=== PATIENT | female | born 1950 | race Caucasian/White ===

== ENCOUNTER → 2018-02-12 | Outpatient (CLI) | payer OTHER | END | disposition home or self-care (01) | LOC: KCIC MAMMO 11:10 | DX: Z12.31 Encounter for screening mammogram for malignant neoplasm of breast (principal) | CPT/HCPCS: 77063; 77067 ==

== ENCOUNTER → 2018-04-22 | Outpatient (CLI) | payer OTHER ==
--- NOTE | 2018-04-23 10:26 | SLEEP ---
DATE OF STUDY: 04/22/2018 ATTENDING PHYSICIAN: Dr. Everardo Beverly. The patient is 67-year-old who weighs 220 pounds with a BMI of 33.4. The patient's [place] score was 10. Home sleep study was performed at [facility]. Total recording time was 568 minutes. During the night study, the patient had 56 obstructive apneas, no central or mixed apneas and 5 hypopneas. The patient's apnea hypopnea index was 6.4 per hour with a supine index of 9.6 per hour. Nocturnal oximetry study revealed an average oxygen saturation 92% with the lowest of 87%. Four minutes were spent in oxygen saturation less than 90%. Mean heart rate was 63 beats per minute. IMPRESSION: 1. Mild sleep apnea-hypopnea syndrome at an AHI of 6.4 per hour. 2. Mild nocturnal hypoxia. RECOMMENDATIONS: 1. The patient has mild sleep apnea. I would recommend weight loss as the initial form of treatment. 2. If patient remains clinically symptomatic despite weight loss, then consider other treatment options such as oral appliance as recommended by the dentist versus a trial of CPAP titration. 3. Avoid [employer] depressants. 4. Cautioned regarding driving until symptoms of sleep apnea resolve with the above recommendations. MILEY VELEZ MD DR: NGUYEN/nts JOB#: [id number] / [id number] Everardo Pro
== END | disposition home or self-care (01) ==
LOC: RT 10:22
PROVIDERS: ATTEND Family Medicine
DX: G47.33 Obstructive sleep apnea (adult) (pediatric) (principal); G47.34 Idiopathic sleep related nonobstructive alveolar hypoventilation
CPT/HCPCS: 95816

== ENCOUNTER → 2019-05-28 | Outpatient (CLI) | payer OTHER ==
--- NOTE | 2019-05-28 14:48 | KCIC ---
EXAM: Left wrist, 3 views; left hand, 3 views. HISTORY: Pain. COMPARISON: None. FINDINGS: 3 views of the left wrist and hand are obtained. There is no acute fracture, dislocation or subluxation. There is mild triscaphe and first carpometacarpal joint space narrowing. There is first carpometacarpal subchondral sclerosis and marginal osteophytosis. There are few chronic fragmented osteophytes in this location. IMPRESSION: 1. Mild triscaphe and moderate first carpometacarpal joint osteoarthritis. 2. No acute osseous finding. Electronically signed by: Faye Bustamante MD (05/28/2019 2:45 PM) [place] [id number]
== END | disposition home or self-care (01) ==
LOC: KCIC 10:44
PROVIDERS: ATTEND Family Medicine
DX: M79.642 Pain in left hand (principal); M25.532 Pain in left wrist; M25.742 Osteophyte, left hand; M18.9 Osteoarthritis of first carpometacarpal joint, unspecified
CPT/HCPCS: 73110; 73130

== ENCOUNTER → 2019-10-07 | Outpatient (CLI) | payer MEDICARE ==
--- NOTE | 2019-10-08 08:52 | KCIC ---
BRAIN W/O CONTRAST History: History of stroke. Headache. Vision disturbance. Technique: Multiplanar, multi sequential MR imaging was performed of the brain without contrast. Comparison: None Findings: No acute infarct. No intracranial hemorrhage. No mass effect. No hydrocephalus. Mild foci of T2/FLAIR hyperintensity within the hemispheric white matter, most often due to chronic microvascular ischemia. Tortuous vertebral basilar artery with indention on the brainstem. Imaged orbits are unremarkable. Mild maxillary sinus mucosal thickening. Mastoid air cells are clear. Impression: 1. No acute intracranial abnormality. Electronically signed by: Jorge Kelly DO (10/08/2019 8:49 AM) [id number]
== END | disposition home or self-care (01) ==
LOC: KCIC MRI 15:38
PROVIDERS: ATTEND Family Medicine
DX: J34.89 Other specified disorders of nose and nasal sinuses (principal); Z86.73 Personal history of transient ischemic attack (TIA), and cerebral infarction without residual deficits
CPT/HCPCS: 70551

== ENCOUNTER → 2021-04-20 | Outpatient (CLI) | payer MEDICARE ==
--- NOTE | 2021-04-23 08:33 | KCIC ---
EXAM: Right knee, 3 views. HISTORY: Pain. COMPARISON: None. FINDINGS: 3 views of the right knee are obtained. There is lateral compartment joint space narrowing, subchondral sclerosis and spurring. There is mild medial and moderate patellofemoral compartment spu rring. There is slight genu valgus. There is a trace amount of joint fluid. There is enthesopathy hudson ng the patella and anterior tibial tubercle. IMPRESSION: 1. Moderate lateral compartment predominant osteoarthritis of the right knee with slight genu valgus. 2. No acute osseous finding. Electronically signed by: Faye Bustamante MD (04/23/2021 8:31 AM) [id number]
== END ==
LOC: KCIC 14:46
PROVIDERS: ATTEND Family Medicine
DX: M17.11 Unilateral primary osteoarthritis, right knee (principal); M21.061 Valgus deformity, not elsewhere classified, right knee; M76.891 Other specified enthesopathies of right lower limb, excluding foot; M25.861 Other specified joint disorders, right knee; M25.561 Pain in right knee
CPT/HCPCS: 73562